=== PATIENT | female | born 2000 ===

== ENCOUNTER 2023-08-16 10:01 | Emergency (ER) | payer BC, OTHER, SELFPAY ==
[2023-08-16] MEDS ORDERED: Lorazepam 2 MG/ML VIAL ONE (10:38)
[2023-08-16] MEDS ORDERED: Haloperidol Lactate 5 MG/ML VIAL ONE ×2 (10:39→12:22)
[2023-08-16 10:53] LABS: #Basophils 0.1 10x3/uL (0.0-0.2); #Monocytes 0.7 10x3/uL (0.0-1.1); #Neutrophils 13.1 10x3/uL (1.5-8.4); %Basophils 0.3 % (0.0-2.0); %Eosinophils 0.2 % (0.0-6.0); %Monocytes 4.4 % (0.0-10.0); %Neutrophils 83.8 % (40.0-75.0); Hematocrit 45.3 % (34.9-44.5); Hemoglobin 15.8 g/dL (12.0-15.5); Mean Corpuscular HGB CONC 34.9 g/dL (32.0-36.0); Mean Corpuscular Hemoglobin 29.8 pg (27.0-33.0); Mean Corpuscular Volume 85.5 fl (81.6-98.3); Mean Platelet Volume 9.2 fl (7.4-10.4); Platelet Count 393 10x3/uL (150-450); RBC Distribution Width 12.3 % (11.5-14.5); White Blood Cell (WBC) Count 15.6 10x3/uL (3.5-10.5)
[2023-08-16 11:10] LABS: BHCG - Serum Negative (NEGATIVE); Pregs Control Background? CLEAR/WHITE (CLR/WHITE); Pregs Control Bar Appear? YES (CONTROL BAR)
[2023-08-16 11:15] LABS: ALT (SGPT) 13 U/L (8-55); AST (SGOT) 17 U/L (5-34); Albumin 4.9 g/dL (3.5-5.0); Alkaline Phosphatase 112 U/L (40-110); Anion Gap 18 mmol/L (10-20); BUN (Urea Nitrogen) 7 mg/dL (7.0-18.7); Bilirubin, Total 0.8 mg/dL (0.2-1.2); Calc. Creatinine Clearance 0 mL/min (70-130); Calcium 10.6 mg/dL (7.8-10.44); Carbon Dioxide 18 mmol/L (22-29); Chloride 105 mmol/L (98-107); Estimated GFR 101; Globulin 3.6 g/dL (2.4-3.5); Glucose 129 mg/dL (70-105); Lipase 20 U/L (8-78); Potassium 3.7 mmol/L (3.5-5.1); Protein, Total 8.5 g/dL (6.0-8.3); Sodium 137 mmol/L (136-145)
[2023-08-16] MEDS ORDERED: Morphine 4 MG/ML VIAL ONE (12:11)
[2023-08-16 14:29] LABS: Lactic Acid 0.7 mmol/L (0.5-2.2)
== END 2023-08-16 14:45 | disposition home or self-care (01) ==
LOC: CSHERS 10:01
DX: R10.13 Epigastric pain (principal); R11.10 Vomiting, unspecified; F17.290 Nicotine dependence, other tobacco product, uncomplicated
CPT/HCPCS: 36415; 76705; 80053; 83605; 83690; 84703; 85025; 96361; 96374; 96375; 96376; J1630; J2060; J2270